=== PATIENT | male | born 1990 | race Caucasian/White ===

== ENCOUNTER 2020-02-12 12:36 | Emergency (ER) | payer BC ==
[2020-02-12] MEDS ORDERED: ASPIRIN 81 MG PO STA (12:57)
--- NOTE | 2020-02-12 13:01 | ED ---
General Adult HPI - General Chief complaint: Arrhythmia/Palpitations Stated complaint: Palpitations Time Seen by Provider: 02/12/20 12:50 Source: patient, RN notes reviewed Mode of arrival: wheelchair Limitations: no limitations - History of Present Illness Initial comments: Patient is a pleasant 21-year-old male presenting to emergency department palpi tations. Patient states he feels like his heart is beating hard. Patient states there is some associated indigestion with this. Patient does have history of chronic indigestion however has been worse over the past week. Patient went to go today to donate plasma however was told there was some ir regularity with his heart beat and patient came to the emergency department. No nausea. No diaphoresis. Patient has been fatigued. Patient is currently symptom-free. - Related Data Home Medications Medication Instructions Recorded Confirmed Testosterone Cypionate 110 mg IM MO 02/12/20 02/12/20 [Depo-Testosterone] Previous Rx's Medication Instructions Recorded Omeprazole [PriLOSEC] 20 mg PO AC-BID #60 cap 02/12/20 Allergies Allergy/AdvReac Type Severity Reaction Status Date / Time No Known Allergies Allergy Verified 02/12/20 13:50 Review of Systems ROS Statement: Those systems with pertinent positive or pertinent negative responses have been documented in the HPI. ROS Other: All systems not noted in ROS Statement are negative. Constitutional: Denies: fever Eyes: Denies: eye pain ENT: Denies: ear pain Respiratory: Denies: cough Cardiovascular: Reports: as per HPI, palpitations Endocrine: Reports: fatigue Gastrointestinal: Denies: abdominal pain, nausea, vomiting Genitourinary: Denies: dysuria Musculoskeletal: Denies: back pain Skin: Denies: rash Neurological: Denies: weakness Past Medical History Past Medical History: No Reported History History of Any Multi-Drug Resistant Organisms: None Reported Past Surgical History: No Surgical Hx Reported Past Psychological History: Bipolar Smoking Status: Current every day smoker Past Alcohol Use History: None Reported Past Drug Use History: None Reported General Exam Limitations: no limitations General appearance: alert, in no apparent distress Head exam: Present: normocephalic Eye exam: Present: normal appearance Neck exam: Present: normal inspection Respiratory exam: Present: normal lung sounds bilaterally. Absent: chest wall tenderness Cardiovascular Exam: Present: regular rate, normal rhythm, normal heart sounds Expanded Peripheral pulses: 2+: Radial (R), Radial (L), Posterior Tibialis (R), Posterior Tibialis (L) GI/Abdominal exam: Present: soft. Absent: tenderness Extremities exam: Present: normal inspection. Absent: pedal edema, calf tenderness Neurological exam: Present: alert Psychiatric exam: Present: normal affect, normal mood Skin exam: Present: normal color Course Vital Signs 02/12/20 02/12/20 12:45 13:49 Temperature 97.8 F 97.9 F Pulse Rate 71 60 Respiratory 20 18 Rate Blood Pressure 142/83 117/81 O2 Sat by Pulse 99 100 Oximetry EKG Findings - EKG Comments: EKG Findings:: Sinus bradycardia with sinus arrhythmia, rate 57. ME 142. QRS 92. QT 390. QTC 379. Normal axis. Normal QRS. No acute ST change. Medical Decision Making - Medical Decision Making Patient reevaluated and resting comfortably in bed. Patient being symptom-free. Patient updated on results and need for follow-up. - Lab Data Result diagrams: 02/12/20 13:02 02/12/20 13:02 Lab Results 02/12/20 02/12/20 02/12/20 Range/Units 13:02 13:02 13:02 WBC 8.2 (3.8-10.6) k/uL RBC 5.37 (4.30-5.90) m/uL Hgb 15.7 (13.0-17.5) gm/dL Hct 46.3 (39.0-53.0) % MCV 86.3 (80.0-100.0) fL MCH 29.3 (25.0-35.0) pg MCHC 33.9 (31.0-37.0) g/dL RDW 12.9 (11.5-15.5) % Plt Count 188 (150-450) k/uL Neutrophils % 63 % Lymphocytes % 27 % Monocytes % 5 % Eosinophils % 3 % Basophils % 1 % Neutrophils # 5.2 (1.3-7.7) k/uL Lymphocytes # 2.2 (1.0-4.8) k/uL Monocytes # 0.4 (0-1.0) k/uL Eosinophils # 0.2 (0-0.7) k/uL Basophils # 0.0 (0-0.2) k/uL PT 9.5 (9.0-12.0) sec INR 0.9 (<1.2) APTT 25.2 (22.0-30.0) sec D-Dimer <0.17 (<0.60) mg/L FEU Sodium 136 L (137-145) mmol/L Potassium 4.2 (3.5-5.1) mmol/L Chloride 105 (98-107) mmol/L Carbon Dioxide 24 (22-30) mmol/L Anion Gap 7 mmol/L BUN 12 (9-20) mg/dL Creatinine 0.73 (0.66-1.25) mg/dL Est GFR (CKD-EPI)AfAm >90 (>60 ml/min/1.73 sqM) Est GFR (CKD-EPI)NonAf >90 (>60 ml/min/1.73 sqM) Glucose 100 H (74-99) mg/dL Calcium 9.5 (8.4-10.2) mg/dL Magnesium 1.9 (1.6-2.3) mg/dL Total Bilirubin 0.8 (0.2-1.3) mg/dL AST 29 (17-59) U/L ALT 44 (4-49) U/L Alkaline Phosphatase 64 (38-126) U/L Troponin I (0.000-0.034) ng/mL Total Protein 7.1 (6.3-8.2) g/dL Albumin 4.6 (3.5-5.0) g/dL TSH 3.720 (0.465-4.680) mIU/L Free T4 1.00 (0.78-2.19) ng/dL Free T3 pg/mL 4.1 (2.8-5.3) pg/ml Urine Color Urine Appearance (Clear) Urine pH (5.0-8.0) Ur Specific [place] (1.001-1.035) Urine Protein (Negative) Urine Glucose (UA) (Negative) Urine Ketones (Negative) Urine Blood (Negative) Urine Nitrite (Negative) Urine Bilirubin (Negative) Urine Urobilinogen (<2.0) mg/dL Ur Leukocyte Esterase (Negative) Urine RBC (0-5) /hpf Urine WBC (0-5) /hpf Ur Squamous Epith Cells (0-4) /hpf Urine Mucus (None) /hpf Urine Opiates Screen (NotDetected) Ur Oxycodone Screen (NotDetected) Urine Methadone Screen (NotDetected) Ur Propoxyphene Screen (NotDetected) Ur Barbiturates Screen (NotDetected) U Tricyclic Antidepress (NotDetected) Ur Phencyclidine Scrn (NotDetected) Ur Amphetamines Screen (NotDetected) U Methamphetamines Scrn (NotDetected) U Benzodiazepines Scrn (NotDetected) Urine Cocaine Screen (NotDetected) U Marijuana (THC) Screen (NotDetected) 02/12/20 02/12/20 Range/Units 13:02 13:02 WBC (3.8-10.6) k/uL RBC (4.30-5.90) m/uL Hgb (13.0-17.5) gm/dL Hct (39.0-53.0) % MCV (80.0-100.0) fL MCH (25.0-35.0) pg MCHC (31.0-37.0) g/dL RDW (11.5-15.5) % Plt Count (150-450) k/uL Neutrophils % % Lymphocytes % % Monocytes % % Eosinophils % % Basophils % % Neutrophils # (1.3-7.7) k/uL Lymphocytes # (1.0-4.8) k/uL Monocytes # (0-1.0) k/uL Eosinophils # (0-0.7) k/uL Basophils # (0-0.2) k/uL PT (9.0-12.0) sec INR (<1.2) APTT (22.0-30.0) sec D-Dimer (<0.60) mg/L FEU Sodium (137-145) mmol/L Potassium (3.5-5.1) mmol/L Chloride (98-107) mmol/L Carbon Dioxide (22-30) mmol/L Anion Gap mmol/L BUN (9-20) mg/dL Creatinine (0.66-1.25) mg/dL Est GFR (CKD-EPI)AfAm (>60 ml/min/1.73 sqM) Est GFR (CKD-EPI)NonAf (>60 ml/min/1.73 sqM) Glucose (74-99) mg/dL Calcium (8.4-10.2) mg/dL Magnesium (1.6-2.3) mg/dL Total Bilirubin (0.2-1.3) mg/dL AST (17-59) U/L ALT (4-49) U/L Alkaline Phosphatase (38-126) U/L Troponin I <0.012 (0.000-0.034) ng/mL Total Protein (6.3-8.2) g/dL Albumin (3.5-5.0) g/dL TSH (0.465-4.680) mIU/L Free T4 (0.78-2.19) ng/dL Free T3 pg/mL (2.8-5.3) pg/ml Urine Color Light Yellow Urine Appearance Clear (Clear) Urine pH 7.5 (5.0-8.0) Ur Specific [place] 1.011 (1.001-1.035) Urine Protein Negative (Negative) Urine Glucose (UA) Negative (Negative) Urine Ketones Negative (Negative) Urine Blood Negative (Negative) Urine Nitrite Negative (Negative) Urine Bilirubin Negative (Negative) Urine Urobilinogen <2.0 (<2.0) mg/dL Ur Leukocyte Esterase Large H (Negative) Urine RBC 2 (0-5) /hpf Urine WBC 15 H (0-5) /hpf Ur Squamous Epith Cells <1 (0-4) /hpf Urine Mucus Rare H (None) /hpf Urine Opiates Screen Not Detected (NotDetected) Ur Oxycodone Screen Not Detected (NotDetected) Urine Methadone Screen Not Detected (NotDetected) Ur Propoxyphene Screen Not Detected (NotDetected) Ur Barbiturates Screen Not Detected (NotDetected) U Tricyclic Antidepress Not Detected (NotDetected) Ur Phencyclidine Scrn Not Detected (NotDetected) Ur Amphetamines Screen Not Detected (NotDetected) U Methamphetamines Scrn Not Detected (NotDetected) U Benzodiazepines Scrn Not Detected (NotDetected) Urine Cocaine Screen Not Detected (NotDetected) U Marijuana (THC) Screen Detected H (NotDetected) - Radiology Data Radiology results: image reviewed (Chest x-ray shows no acute process) Disposition Clinical Impression: Palpitations Disposition: HOME SELF-CARE Condition: Stable Instructions (If sedation given, give patient instructions): Heart Palpitations (ED), Gastroesophageal Reflux Disease (ED) Additional Instructions: Please follow-up with primary care physician in the next couple days for recheck. Consider Holter monitor. Also consider HIDA scan or EGD. Return for chest pain, irregular heartbeat racing heartbeat, worsening or change in symptoms or other concerns. Restrictions sent to [facility] on Prescriptions: Omeprazole [PriLOSEC] 20 mg PO AC-BID #60 cap Is patient prescribed a controlled substance at d/c from ED?: No Referrals: Héctor Mar III, MD [STAFF PHYSICIAN] - 1-2 days Time of Disposition: 14:07
[2020-02-12 13:09] LABS: Basophils % (A) 1 %; Eosinophils # (A) 0.2 k/uL (0-0.7); Eosinophils % (A) 3 %; HCT 46.3 % (39.0-53.0); HGB 15.7 gm/dL (13.0-17.5); Lymphocytes # (A) 2.2 k/uL (1.0-4.8); Lymphocytes % (A) 27 %; MCH 29.3 pg (25.0-35.0); MCHC 33.9 g/dL (31.0-37.0); MCV 86.3 fL (80.0-100.0); Mean Platelet Volume 8.5; Monocytes # (A) 0.4 k/uL (0-1.0); Monocytes % (A) 5 %; Neutrophils # (A) 5.2 k/uL (1.3-7.7); Neutrophils % (A) 63 %; Platelet Count 188 k/uL (150-450); RBC 5.37 m/uL (4.30-5.90); RDW 12.9 % (11.5-15.5); WBC 8.2 k/uL (3.8-10.6)
[2020-02-12 13:19] LABS: ALT 44 U/L (4-49); AST 29 U/L (17-59); African American GFR (CKD) >90 (>60 ml/min/1.73 sqM); Albumin 4.6 g/dL (3.5-5.0); Alkaline Phosphatase 64 U/L (38-126); Anion Gap 7 mmol/L; Blood Urea Nitrogen 12 mg/dL (9-20); Calcium 9.5 mg/dL (8.4-10.2); Carbon Dioxide 24 mmol/L (22-30); Chloride 105 mmol/L (98-107); Glucose 100 mg/dL (74-99); Magnesium 1.9 mg/dL (1.6-2.3); Non-African American GFR(CKD) >90 (>60 ml/min/1.73 sqM); Potassium 4.2 mmol/L (3.5-5.1); Sodium 136 mmol/L (137-145); Total Bilirubin 0.8 mg/dL (0.2-1.3); Total Protein 7.1 g/dL (6.3-8.2)
[2020-02-12 13:21] LABS: Appearance,Urine Clear (Clear); Bilirubin,Urine Negative (Negative); Blood,Urine Negative (Negative); Color,Urine Light Yellow; Glucose,Urine (UA) Negative (Negative); Ketones,Urine Negative (Negative); Leukocyte Esterase,Urine Large (Negative); Mucus,Urine Rare /hpf; Nitrite,Urine Negative (Negative); PH, Urine 7.5 (5.0-8.0); Protein,Urine Negative (Negative); RBC,Urine 2 /hpf (0-5); Specific Gravity,Urine 1.011 (1.001-1.035); Squamous Epithelial Cell,Urine <1 /hpf (0-4); Urobilinogen,Urine <2.0 mg/dL (<2.0); WBC,Urine 15 /hpf (0-5)
[2020-02-12 13:23] LABS: D-Dimer <0.17 mg/L FEU (<0.60); INR 0.9 (<1.2); Partial Thromboplastin Time 25.2 sec (22.0-30.0); Prothrombin Time 9.5 sec (9.0-12.0)
[2020-02-12 13:29] LABS: Amphetamine Screen,Urine Not Detected (NotDetected); Barbiturate Screen,Urine Not Detected (NotDetected); Benzodiazepines Screen,Urine Not Detected (NotDetected); Cocaine Screen,Urine Not Detected (NotDetected); Methadone Screen, Urine Not Detected (NotDetected); Opiate Screen,Urine Not Detected (NotDetected); Oxycodone Screen, Urine Not Detected (NotDetected); Phencyclidine Screen,Urine Not Detected (NotDetected); Tricyclic Antidepressant,Urine Not Detected (NotDetected); Urn Cannabinoid Scrn Detected (NotDetected)
--- NOTE | 2020-02-12 13:36 | XR ---
EXAMINATION TYPE: XR chest 2V DATE OF EXAM: 02/12/2020 COMPARISON: NONE HISTORY: Chest tightness and dysrhythmia. TECHNIQUE: Frontal and lateral views of the chest are obtained. FINDINGS: There is no focal air space opacity, pleural effusion, or pneumothorax seen. The cardiac silhouette size is within normal limits. The osseous structures are intact. IMPRESSION: No acute cardiopulmonary process.
[2020-02-12 13:50] VITALS: BP 117/81; PULSE 60; RESP 18; TEMP 97.9
== END 2020-02-12 14:25 | disposition home or self-care (01) ==
LOC: EC 12:36
DX: R00.2 Palpitations (principal); F17.200 Nicotine dependence, unspecified, uncomplicated; Z79.890 Hormone replacement therapy
CPT/HCPCS: 36415; 71046; 80053; 80306; 81001; 83735; 84439; 84443; 84481; 84484; 85025; 85379; 85610; 85730; 87086; 93005; 99285

== ENCOUNTER 2021-05-16 21:51 | Emergency (ER) | payer BC, OTHER ==
[2021-05-16 21:57] VITALS: RESP 18
[2021-05-16] MEDS ORDERED: AMOXICILLIN 500 MG CAP PO STA (22:18)
--- NOTE | 2021-05-16 22:24 | ED ---
General Adult HPI - General Chief complaint: ENT Stated complaint: Sore Throat Time Seen by Provider: 05/16/21 22:04 Source: patient, RN notes reviewed Mode of arrival: ambulatory Limitations: no limitations - History of Present Illness Initial comments: 30-year-old male presents to the emergency room for a chief complaint of sore throat. Patient has had a sore throat for about 5 days now. Patient states he was diagnosed with COVID-19 on the and symptoms had resolved however his throat started hurting on the . He was seen at another emergency room and had a negative strep test. States since then the symptoms have worsened and he saw white spots in the back of his throat. Patient states he feels he needs a medication to treat this.Patient has no other complaints at this time including shortness of breath, chest pain, abdominal pain, nausea or vomiting, headache, or visual changes. - Related Data Home Medications Medication Instructions Recorded Confirmed Testosterone Cypionate 110 mg IM MO 02/12/20 02/12/20 [Depo-Testosterone] Previous Rx's Medication Instructions Recorded Omeprazole [PriLOSEC] 20 mg PO AC-BID #60 cap 02/12/20 Amoxicillin 500 mg PO Q12HR #14 cap 05/16/21 Allergies Allergy/AdvReac Type Severity Reaction Status Date / Time No Known Allergies Allergy Verified 05/16/21 21:56 Review of Systems ROS Statement: Those systems with pertinent positive or pertinent negative responses have been documented in the HPI. ROS Other: All systems not noted in ROS Statement are negative. Past Medical History Past Medical History: No Reported History History of Any Multi-Drug Resistant Organisms: None Reported Past Surgical History: No Surgical Hx Reported Past Psychological History: Bipolar Smoking Status: Current every day smoker Past Alcohol Use History: None Reported Past Drug Use History: None Reported General Exam Limitations: no limitations General appearance: alert, in no apparent distress Head exam: Present: atraumatic Eye exam: Present: normal appearance, PERRL, EOMI. Absent: scleral icterus, conjunctival injection ENT exam: Present: normal exam, mucous membranes moist. Absent: normal oropharynx (Uvula midline, no tonsillar exudate bilaterally. Oropharynx is erythematous however.) Neck exam: Present: normal inspection, full ROM. Absent: tenderness Respiratory exam: Present: normal lung sounds bilaterally. Absent: respiratory distress, wheezes Cardiovascular Exam: Present: regular rate, normal rhythm, normal heart sounds GI/Abdominal exam: Present: soft, normal bowel sounds. Absent: distended, tenderness Course Vital Signs 05/16/21 21:54 Temperature 98.8 F Pulse Rate 89 Respiratory 18 Rate Blood Pressure 139/91 O2 Sat by Pulse 99 Oximetry Medical Decision Making - Medical Decision Making Vitals are stable. Patient is well appearing. Oropharynx appears erythematous however no tonsillar exudates. Uvula midline. No evidence for peritonsillar abscess. Given patient has had a sore throat for about 6 days now and symptoms are worsening we will treat with an antibiotic. He will return for any worsening symptoms. Disposition Clinical Impression: Pharyngitis Disposition: HOME SELF-CARE Condition: Good Instructions (If sedation given, give patient instructions): Pharyngitis (ED) Additional Instructions: Please take medications as directed. Follow-up with your doctor. Return to the emergency room for any worsening symptoms. Prescriptions: Amoxicillin 500 mg PO Q12HR #14 cap Is patient prescribed a controlled substance at d/c from ED?: No Referrals: Nancy Doshi MD [REFERRING] - 1-2 days Time of Disposition: 22:21
[2021-05-16 22:53] VITALS: BP 131/88; PULSE 87; TEMP 98.7
== END 2021-05-16 22:50 | disposition home or self-care (01) ==
LOC: EC 21:51
DX: J02.9 Acute pharyngitis, unspecified (principal); F31.9 Bipolar disorder, unspecified; F17.200 Nicotine dependence, unspecified, uncomplicated
CPT/HCPCS: 99282

== ENCOUNTER → 2022-09-17 | Outpatient (CLI) | payer OTHER ==
[2022-09-17 14:26] LABS: HCT 46.1 % (39.6-50.0); HGB 15.2 g/dL (13.0-17.0); MCH 28.8 pg (27.0-32.0); MCV 87.3 fL (80.0-97.0); NRBC Per 100 WBC 0 /100 WBCS (0.0-0.0); Platelet Count 229 X 10*3/uL (140-440); RBC 5.28 X 10*6/uL (4.40-5.60); RDW 12.9 % (11.5-14.5); WBC 6.64 X 10*3/uL (4.50-10.00)
[2022-09-17 15:55] LABS: African American GFR (CKD) 132.7 (60.0-200.0); Albumin 4.3 g/dL (3.8-4.9); Albumin/Globulin Ratio 1.88 (1.60-3.17); BUN/Creat Ratio 8.68 Ratio (12.00-20.00); Blood Urea Nitrogen 7.8 mg/dL (9.0-27.0); Calcium 9.3 mg/dL (8.7-10.3); Carbon Dioxide 27.6 mmol/L (20.0-27.5); Estradiol 27.4 pg/mL; Globulin 2.3 g/dL (1.6-3.3); Non-African American GFR(CKD) 114.5 (60.0-200.0); Potassium 3.9 mmol/L (3.5-5.5); Total Bilirubin 0.6 mg/dL (0.30-1.20); Total Protein 6.6 g/dL (6.2-8.2)
== END | disposition home or self-care (01) ==
LOC: LABWHC1 10:42
PROVIDERS: ATTEND Obstetrics & Gynecology
DX: F64.0 Transsexualism (principal)
CPT/HCPCS: 36415; 80053; 82670; 85027

== ENCOUNTER → 2022-10-21 | Outpatient (CLI) | payer OTHER | END | disposition home or self-care (01) | LOC: LABWHC1 12:28 | PROVIDERS: ATTEND Obstetrics & Gynecology | DX: F64.0 Transsexualism (principal) | CPT/HCPCS: 36415 ==

== ENCOUNTER 2022-12-01 06:06 | Day surgery (SDC) | payer OTHER ==
[~2022-12-01 06:06] MED LIST: ACETAMINOPHEN TAB 500 MG TAB PO PRN; DEXAMETHASONE SOD PHOSPHATE 4 MG/ML 1 ML VIAL IV ONE; HEPARIN SODIUM,PORCINE/PF 5,000 UNIT/0.5 ML SYRINGE SQ PRN; HYDROmorphone 0.5 MG/0.5 ML SYRINGE IVP PRN; LACTATED RINGERS 1,000 ML IV SCH; ONDANSETRON 4 MG/2 ML VIAL IVP ONE
[2022-12-01] MEDS ORDERED: ROCURONIUM 10 MG/ML (5 ML VIAL) IV ONE (07:25)
[2022-12-01] MEDS ORDERED: MIDAZOLAM 2 MG/2 ML VIAL ONE (07:25)
[2022-12-01] MEDS ORDERED: GLYCOPYRROLATE 0.2 MG/ML 2 ML VIAL ONE (07:25)
[2022-12-01] MEDS ORDERED: KETOROLAC 15 MG/ML 1 ML VIAL ONE (07:25)
[2022-12-01] MEDS ORDERED: LIDOCAINE 2% INJ 20 MG/ML (2 ML VIAL) ONE (07:25)
[2022-12-01] MEDS ORDERED: SUCCINYLCHOLINE CHLORIDE 200 MG/10 ML VIAL IV ONE (07:25)
[2022-12-01] MEDS ORDERED: fentaNYL (PF) 50 MCG/ML 2 ML AMP ONE (07:25)
[2022-12-01] MEDS ORDERED: NEOSTIGMINE 1 MG/ML 10 ML VIAL ONE (07:25)
[2022-12-01] MEDS ORDERED: LIDOCAINE 4% LTA KIT (4 ML) TOPICAL ONE (07:25)
[2022-12-01] MEDS ORDERED: PROPOFOL 10 MG/ML 20 ML VIAL IV ONE (07:25)
--- NOTE | 2022-12-01 07:26 | P.GSHP ---
History of Present Illness H&P Date: 12/01/22 Chief Complaint: Chronic cholecystitis 32-year-old male here today for elective cholecystectomy. Patient with intermittent nausea, right upper quadrant pain with history of gallstones and contracted gallbladder on ultrasound. Symptoms have persisted since he was last seen in the office in September. Past Medical History Past Medical History: No Reported History Additional Past Medical History / Comment(s): gallstones,transgender- transitioning History of Any Multi-Drug Resistant Organisms: None Reported Past Surgical History: No Surgical Hx Reported Past Anesthesia/Blood Transfusion Reactions: No Reported Reaction Additional Past Anesthesia/Blood Transfusion Reaction / Comment(s): no hx of general anesthesia or blood transfusion Smoking Status: Former smoker - Past Family History Mother Family Medical History: No Reported History Medications and Allergies Home Medications Medication Instructions Recorded Confirmed Type Testosterone Cypionate 110 mg IM MO 02/12/20 12/01/22 History [Depo-Testosterone] Allergies Allergy/AdvReac Type Severity Reaction Status Date / Time No Known Allergies Allergy Verified 12/01/22 06:56 Surgical - Exam Vital Signs Temp Pulse Resp BP Pulse Ox 97.5 F L 57 L 15 141/76 97 12/01/22 07:06 12/01/22 07:06 12/01/22 07:06 12/01/22 07:06 12/01/22 07:06 Physical exam: General: Well-developed, well-nourished HEENT: Normocephalic, sclerae nonicteric Abdomen: Nontender, nondistended Extremities: No edema Neuro: Alert and oriented Assessment and Plan (1) Chronic cholecystitis Narrative/Plan: Will proceed with laparoscopic, possible open cholecystectomy at this time. Risks of bleeding, infection, bile leak, bile duct injury, retained common bile duct stone, trocar injury, conversion to an open procedure, hernia, anesthesia related complications were reviewed. The patient understands and wishes to proceed. Current Visit: Yes Status: Acute Code(s): K81.1 - CHRONIC CHOLECYSTITIS S NOMED Code(s): 25051396
[2022-12-01] MEDS ORDERED: BUPIVACAINE (PF) 0.25% 30 ML VIAL SQ ONE ×2 (08:02→08:16)
[2022-12-01] MEDS ORDERED: droPERidol 5 MG/2 ML VIAL IVP ONE (08:35)
[2022-12-01 08:48] VITALS: TEMP 97.4
[2022-12-01] MEDS ORDERED: GLYCOPYRROLATE 0.2 MG/ML 2 ML VIAL IVP ONE (08:57)
[2022-12-01 09:04] VITALS: RESP 16
--- NOTE | 2022-12-01 10:21 | P.OP ---
Date of Procedure: 12/01/22 Procedure(s) Performed: PREOPERATIVE DIAGNOSIS: Chronic cholecystitis POSTOPERATIVE DIAGNOSIS: Same PROCEDURE: Laparoscopic cholecystectomy SURGEON: Pat EBL: Minimal see anesthesia record ANESTHESIA: Gen. COMPLICATIONS: None OPERATIVE PROCEDURE: The patient was brought and placed on the operating room table in the supine position. The patient was placed under general anesthesia at that time. The abdomen was prepped and draped in the usual sterile fashion. A small vertical infraumbilical incision was made. The fascia was grasped with the Baldo forceps. The fascia was retracted anteriorly. The Veress needle was advanced into the peritoneal cavity. The saline drop test was normal. Insufflation took place up to 15 mmHg. A 5 mm optical trocar was advanced and the peritoneal cavity. 2 additional 5 mm trochars were placed in the right upper quadrant under direct visualization. A 12 mm trocar was advanced into the epigastric incision site. The gallbladder was retracted superiorly and laterally. The peritoneum overlying the infundibulum was bluntly dissected. The patient's cystic duct was visualized. The junction between the cystic duct common and hepatic duct was identified. The critical view of safety was achieved after blunt dissection. The cystic duct was then divided after placement of 3 12 mm clips on the patient's side and one on the specimen side. The cystic artery was identified and clipped as well. A small vessel was seen along the gallbladder fossa and clipped as well. The gallbladder was then removed from the liver bed using electrocautery. The gallbladder was then removed from the epigastric trocar site with an Endo Catch bag. The gallbladder fossa was irrigated with saline. There was no evidence of any bleeding or biliary drainage seen. The fascia at the 12 millimeter site was closed using a Pj-Brandi 0 Vicryl stitch. The trochars were then removed. The skin at all 4 sites was closed using a 4-0 Monocryl stitch. Skin glue was utilized on the incision sites. At the end of this procedure the sponge and needle counts were correct. DISPOSITION: Stable to the recovery room
[2022-12-01] MEDS ORDERED: LACTATED RINGERS 1,000 ML IV ONE (10:40)
[2022-12-01 11:03] VITALS: BP 123/75; PULSE 57
[2022-12-01] MEDS ORDERED: ACETAMINOPHEN TAB 325 MG TAB PO SCH (12:00)
[2022-12-01] MEDS ORDERED: IBUPROFEN 600 MG TAB PO SCH (13:30)
== END 2022-12-01 11:11 | disposition home or self-care (01) ==
LOC: OR 06:06
PROVIDERS: ATTEND Surgery
DX: K80.10 Calculus of gallbladder with chronic cholecystitis without obstruction (principal); F12.90 Cannabis use, unspecified, uncomplicated; Z87.891 Personal history of nicotine dependence; Z87.19 Personal history of other diseases of the digestive system; Z79.890 Hormone replacement therapy
CPT/HCPCS: 47562; 81025; J2250; J0330; J1100; J2710; J0690; J2405; J3010; J1885; J2704; J1790; J1644; J2001; 88304

== ENCOUNTER 2024-03-18 23:26 | Emergency (ER) | payer BC, OTHER ==
--- NOTE | 2024-03-19 00:52 | ED ---
General Adult HPI - General Chief complaint: Fever Stated complaint: Fever Time Seen by Provider: 03/18/24 23:39 Source: patient, RN notes reviewed Mode of arrival: ambulatory Limitations: no limitations - History of Present Illness Initial comments: This is a 33-year-old male with no significant past medical history presents emergency department chief complaint of sore throat and fevers over the past few days. Patient originally thought that this was a upper respiratory infection however was concerned that his fever was not resolving with Tylenol Motrin at home. He endorses mild cough as well. Denies nausea, vomiting, abdominal pain. No other acute complaints at this time. - Related Data Home Medications Medication Instructions Recorded Confirmed Testosterone Cypionate 110 mg IM MO 02/12/20 12/01/22 [Depo-Testosterone] Previous Rx's Medication Instructions Recorded oxyCODONE HCL [OxyIR] 5 mg PO Q6H PRN 3 Days #6 tab 12/01/22 Amoxic-Pot Clav 875-125Mg 1 tab PO BID 5 Days #10 tab 12/04/22 [Augmentin 875-125] Amoxicillin 875 mg PO Q12HR #20 tablet 03/19/24 Allergies Allergy/AdvReac Type Severity Reaction Status Date / Time ketorolac [From Toradol] Allergy Rash/Hives Verified 03/18/24 23:42 Review of Systems ROS Statement: Those systems with pertinent positive or pertinent negative responses have been documented in the HPI. ROS Other: All systems not noted in ROS Statement are negative. Past Medical History Past Medical History: No Reported History Additional Past Medical History / Comment(s): gallstones,transgender- transitioning History of Any Multi-Drug Resistant Organisms: None Reported Past Surgical History: No Surgical Hx Reported Past Anesthesia/Blood Transfusion Reactions: No Reported Reaction Additional Past Anesthesia/Blood Transfusion Reaction / Comment(s): no hx of general anesthesia or blood transfusion Past Psychological History: Bipolar Smoking Status: Former smoker Past Alcohol Use History: None Reported Past Drug Use History: None Reported - Past Family History Mother Family Medical History: No Reported History General Exam Limitations: no limitations General appearance: alert, in no apparent distress Head exam: Present: atraumatic, normocephalic, normal inspection ENT exam: Present: normal exam, mucous membranes moist, other (Tonsillomegaly with tonsillar exudates and erythema) Neck exam: Present: normal inspection, lymphadenopathy. Absent: tenderness Respiratory exam: Present: normal lung sounds bilaterally. Absent: respiratory distress, wheezes, rales, rhonchi, stridor Cardiovascular Exam: Present: regular rate, normal rhythm, normal heart sounds. Absent: systolic murmur, diastolic murmur, rubs, gallop, clicks GI/Abdominal exam: Present: soft, normal bowel sounds. Absent: distended, tenderness, guarding, rebound, rigid Extremities exam: Present: normal inspection, full ROM, normal capillary refill. Absent: tenderness, pedal edema, joint swelling, calf tenderness Skin exam: Present: warm, dry, intact, normal color. Absent: rash Course Vital Signs 03/18/24 03/19/24 23:38 01:26 Temperature 103 F H 101.6 F H Pulse Rate 101 H 99 Respiratory 20 16 Rate Blood Pressure 129/82 126/74 O2 Sat by Pulse 98 99 Oximetry Medical Decision Making - Medical Decision Making Was pt. sent in by a medical professional or institution (, PA, ROCKET SCIENTIST, urgent care, hospital, or senior living...) When possible be specific @ -No Did you speak to anyone other than the patient for history (EMS, parent, family, police, friend...)? What history was obtained from this source @ -No Did you review nursing and triage notes (agree or disagree)? Why? @ -I reviewed and agree with nursing and triage notes Were old charts reviewed (outside hosp., previous admission, EMS record, old EKG, old radiological studies, urgent care reports/EKG's, senior living records)? Report findings @ -No old charts were reviewed Differential Diagnosis (chest pain, altered mental status, abdominal pain women, abdominal pain men, vaginal bleeding, weakness, fever, dyspnea, syncope, headache, dizziness, GI bleed, back pain, seizure, CVA, palpatations, mental health, musculoskeletal)? @ -COVID 19, RSV, influenza, pneumonia, acute bronchitis, URI, this list is not all inclusive EKG interpreted by me (3pts min.). @ -None X-rays interpreted by me (1pt min.). @ -Chest x-ray no acute cardiopulmonary process or disease noted CT interpreted by me (1pt min.). @ -None done U/S interpreted by me (1pt. min.). @ -None done What testing was considered but not performed or refused? (CT, X-rays, U/S, labs)? Why? @ -None What meds were considered but not given or refused? Why? @ -None Did you discuss the management of the patient with other professionals (professionals i.e. , PA, ROCKET SCIENTIST, lab, RT, psych nurse, director social welfare, petroleum analyst, teacher, hazard mitigation officer, case management coordinator)? Give summary @ -No Was smoking cessation discussed for >3mins.? @ -No Was critical care preformed (if so, how long)? @ -No Were there social determinants of health that impacted care today? How? (Homelessness, low income, unemployed, alcoholism, drug addiction, transportation, low edu. Level, literacy, decrease access to med. care, residential, rehab)? @ -No Was there de-escalation of care discussed even if they declined (Discuss DNR or withdrawal of care, Hospice)? DNR status @ -No What co-morbidities impacted this encounter? (DM, HTN, Smoking, COPD, CAD, Cancer, CVA, ARF, Chemo, Hep., AIDS, mental health diagnosis, sleep apnea, morbid obesity)? @ -None Was patient admitted / discharged? Hospital course, mention meds given and route, prescriptions, significant lab abnormalities, going to OR and other pertinent info. @ -Discharge. 33-year-old male with upper respiratory infection symptoms and sore throat. On arrival patient is noted to be tachycardic and febrile with vitals of 103 and heart rate of 101. Patient is provided with 800 mg tablet of ibuprofen pending laboratory results and chest x-ray. Patient is positive for strep throat, chest x-ray negative for acute cardiopulmonary process. Patient is provided with initial dose of amoxicillin in the emergency department and will be sent for a prescription for the pharmacy. Recommend that he increase oral hydration and continue to use Tylenol and Motrin at home for symptomatic and fever relief. All questions answered at bedside and strict return parameters sunni with the patient he is verbalized understanding. Discussed with Dr. Zimmerman Undiagnosed new problem with uncertain prognosis? @ -No Drug Therapy requiring intensive monitoring for toxicity (Heparin, Nitro, Insulin, Cardizem)? @ -No Were any procedures done? @ -No Diagnosis/symptom? @ -Fever, strep pharyngitis Acute, or Chronic, or Acute on Chronic? @ -Acute Uncomplicated (without systemic symptoms) or Complicated (systemic symptoms)? @ -uncomplicated Side effects of treatment? @ -No Exacerbation, Progression, or Severe Exacerbation? @ -No Poses a threat to life or bodily function? How? (Chest pain, [place], [place], pneumonia, PE, COPD, DKA, ARF, appy, cholecystitis, CVA, Diverticulitis, Homicidal, Suicidal, threat to staff... and all critical care pts) @ -No - Lab Data Lab Results 03/18/24 03/18/24 Range/Units 23:45 23:45 Influenza Type A (PCR) Not Detected (Not Detectd) Influenza Type B (PCR) Not Detected (Not Detectd) RSV (PCR) Not Detected (Not Detectd) SARS-CoV-2 (PCR) Not Detected (Not Detectd) Group A Strep (PCR) DETECTED A (Not Detectd) Disposition Clinical Impression: Strep pharyngitis, Fever Disposition: HOME SELF-CARE Condition: Good Instructions (If sedation given, give patient instructions): Strep Throat (DC), Fever in Adults (ED) Additional Instructions: Return to the emergency department for any new or worsening symptoms. Complete full course of antibiotics as prescribed. Recommend they continue Tylenol Motrin at home for symptomatic and fever relief. Follow-up with a your toothbrush and increase hydration. Follow-up with your primary care provider within 1 week for further evaluation. Prescriptions: Amoxicillin 875 mg PO Q12HR #20 tablet Is patient prescribed a controlled substance at d/c from ED?: No Referrals: None,Stated [Primary Care Provider] - 1-2 days Time of Disposition: 01:08
--- NOTE | 2024-03-19 01:05 | XR ---
EXAM: XR Chest, 2 Views CLINICAL HISTORY: ITS.REASON XR Reason: fever/cough TECHNIQUE: Frontal and lateral views of the chest. COMPARISON: 02/12/2020. FINDINGS: Lungs: Unremarkable. No consolidative changes. Pleural space: Unremarkable. No pneumothorax. No pleural effusions. Heart: Heart is normal in size. No cardiomegaly. Mediastinum: Unremarkable. Normal mediastinal contour. Bones/joints: Unremarkable. No acute fracture. Normal alignment of the thoracic spine. IMPRESSION: No active disease, unchanged.
[2024-03-19] MEDS: IBUPROFEN 800 MG TAB PO STA (01:16)
[2024-03-19] MEDS: AMOXICILLIN 875 MG TAB PO ONE (01:23)
[2024-03-19 01:27] VITALS: BP 126/74; PULSE 99; RESP 16; TEMP 101.6
== END 2024-03-19 01:27 | disposition home or self-care (01) ==
LOC: EC 23:26
CPT/HCPCS: 71046; 87636; 87651; 99283

== ENCOUNTER 2024-03-20 14:28 | Emergency (ER) | payer BC ==
[2024-03-20] MEDS: ACETAMINOPHEN TAB 500 MG TAB PO STA (16:08)
--- NOTE | 2024-03-20 16:08 | ED ---
Skin/Abscess/FB HPI - General Chief complaint: Skin/Abscess/Foreign Body Stated complaint: Recheck-Rash Time Seen by Provider: 03/20/24 15:46 Source: patient Mode of arrival: ambulatory Limitations: no limitations - History of Present Illness Initial comments: 33-year-old male presenting with chief complaint of rash. Patient was seen here on Thursday and diagnosed with strep throat, started on amoxicillin. Has been taking medication as prescribed and reports that he does not feel much better. He states he still having fevers and now is breaking out in a rash on his face and back. He admits to muscle aches and fatigue. He also admits to multiple canker sores in the mouth and general discomfort that is making it difficult to eat. Admits to some left upper quadrant pain. No chest pain or difficulty breathing. No nausea vomiting or diarrhea. - Related Data Home Medications Medication Instructions Recorded Confirmed Testosterone Cypionate 110 mg IM MO 02/12/20 12/01/22 [Depo-Testosterone] Previous Rx's Medication Instructions Recorded oxyCODONE HCL [OxyIR] 5 mg PO Q6H PRN 3 Days #6 tab 12/01/22 Amoxic-Pot Clav 875-125Mg 1 tab PO BID 5 Days #10 tab 12/04/22 [Augmentin 875-125] Amoxicillin 875 mg PO Q12HR #20 tablet 03/19/24 Allergies Allergy/AdvReac Type Severity Reaction Status Date / Time ketorolac [From Toradol] Allergy Rash/Hives Verified 03/20/24 14:32 Review of Systems ROS Statement: Those systems with pertinent positive or pertinent negative responses have been documented in the HPI. ROS Other: All systems not noted in ROS Statement are negative. Past Medical History Past Medical History: No Reported History Additional Past Medical History / Comment(s): gallstones,transgender- transitioning History of Any Multi-Drug Resistant Organisms: None Reported Past Surgical History: No Surgical Hx Reported Past Anesthesia/Blood Transfusion Reactions: No Reported Reaction Additional Past Anesthesia/Blood Transfusion Reaction / Comment(s): no hx of general anesthesia or blood transfusion Past Psychological History: Bipolar Smoking Status: Former smoker Past Alcohol Use History: None Reported Past Drug Use History: None Reported - Past Family History Mother Family Medical History: No Reported History General Exam Limitations: no limitations General appearance: alert, in no apparent distress Head exam: Present: atraumatic, normocephalic, normal inspection Eye exam: Present: normal appearance, EOMI Neck exam: Present: normal inspection. Absent: meningismus Respiratory exam: Present: normal lung sounds bilaterally. Absent: respiratory distress, wheezes, rales, rhonchi, stridor Cardiovascular Exam: Present: regular rate, normal rhythm, normal heart sounds. Absent: systolic murmur, diastolic murmur, rubs, gallop, clicks GI/Abdominal exam: Present: soft, tenderness (Left upper quadrant). Absent: distended, guarding, rebound, rigid Neurological exam: Present: alert, oriented X3 Psychiatric exam: Present: normal affect, normal mood Expanded Description of rash: Present: papular (Red papules to the face) Course Vital Signs 03/20/24 03/20/24 03/20/24 14:29 15:50 17:27 Temperature 98.6 F 99.3 F 98.9 F Pulse Rate 85 80 Respiratory 16 18 Rate Blood Pressure 126/88 121/78 O2 Sat by Pulse 99 99 Oximetry Medical Decision Making - Medical Decision Making Was pt. sent in by a medical professional or institution (, PA, VOLUNTEER SERVICES SPECIALIST, urgent care, hospital, or longterm...) When possible be specific @ -No Did you speak to anyone other than the patient for history (EMS, parent, family, police, friend...)? What history was obtained from this source @ -No Did you review nursing and triage notes (agree or disagree)? Why? @ -I reviewed and agree with nursing and triage notes Were old charts reviewed (outside hosp., previous admission, EMS record, old EKG, old radiological studies, urgent care reports/EKG's, longterm records)? Report findings @ -I reviewed the patient's most recent ER visit Differential Diagnosis (chest pain, altered mental status, abdominal pain women, abdominal pain men, vaginal bleeding, weakness, fever, dyspnea, syncope, headache, dizziness, GI bleed, back pain, seizure, CVA, palpatations, mental health, musculoskeletal)? @ -Differential includes group A strep, scarlet fever, mononucleosis, allergic reaction, this is not an all-inclusive list EKG interpreted by me (3pts min.). @ -As above X-rays interpreted by me (1pt min.). @ -None done CT interpreted by me (1pt min.). @ -None done U/S interpreted by me (1pt. min.). @ -None done What testing was considered but not performed or refused? (CT, X-rays, U/S, labs)? Why? @ -None What meds were considered but not given or refused? Why? @ -None Did you discuss the management of the patient with other professionals (professionals i.e. Dr., PA, VOLUNTEER SERVICES SPECIALIST, lab, RT, psych nurse, hospice social worker, sports lawyer, teacher, animal park code enforcement officer, binder caser)? Give summary @ -No Was smoking cessation discussed for >3mins.? @ -No Was critical care preformed (if so, how long)? @ -No Were there social determinants of health that impacted care today? How? (Homelessness, low income, unemployed, alcoholism, drug addiction, transportation, low edu. Level, literacy, decrease access to med. care, long term, re hab)? @ -No Was there de-escalation of care discussed even if they declined (Discuss DNR or withdrawal of care, Hospice)? DNR status @ -No What co-morbidities impacted this encounter? (DM, HTN, Smoking, COPD, CAD, Cancer, CVA, ARF, Chemo, Hep., AIDS, mental health diagnosis, sleep apnea, morbid obesity)? @ -None Was patient admitted / discharged? Hospital course, mention meds given and route, prescriptions, significant lab abnormalities, going to OR and other pertinent info. @ -33-year-old male presenting with chief complaint of rash and fevers. He was diagnosed with strep throat on Thursday and started on amoxicillin. On exam there are erythematous papules seen on the face. He also does have multiple aphthous ulcers to the mouth. Heterophile is negative. Patient likely has a presen tation of scarlet fever. He is encouraged to continue his medication. Educated on today's findings and management plan. Discharged. Follow-up with PCP. Report back to ER with any new or worsening symptoms. Discussed return parameters and answered all questions. Patient conveyed verbal understanding and agreed to the plan. I discussed this case in detail with my attending Dr. Dominguez Undiagnosed new problem with uncertain prognosis? @ -No Drug Therapy requiring intensive monitoring for toxicity (Heparin, Nitro, Insulin, Cardizem)? @ -No Were any procedures done? @ -No Diagnosis/symptom? @ -Scarlet fever Acute, or Chronic, or Acute on Chronic? @ -Acute Uncomplicated (without systemic symptoms) or Complicated (systemic symptoms)? @ -Uncomplicated Side effects of treatment? @ -No Exacerbation, Progression, or Severe Exacerbation? @ -No - Lab Data Lab Results 03/20/24 Range/Units 16:08 Heterophile Antibody Negative (Negative) Disposition Clinical Impression: Scarlet fever Disposition: HOME SELF-CARE Condition: Good Instructions (If sedation given, give patient instructions): Scarlet Fever (ED) Additional Instructions: Follow-up with PCP, suggestion provided. Report back to ER with any new or worsening symptoms. Continue taking your antibiotics as prescribed. Alternate Motrin and Tylenol as needed for fever aches and pains. Is patient prescribed a controlled substance at d/c from ED?: No Referrals: None,Stated [Primary Care Provider] - 1-2 days Ras Mccall MD [STAFF PHYSICIAN] - 1-2 days Dominic Londono MD [STAFF PHYSICIAN] - 1-2 days Time of Disposition: 17:18
[2024-03-20] MEDS: SODIUM CHLORIDE 0.9% 1,000 ML IV ONE (16:11)
[2024-03-20] MEDS: ONDANSETRON 4 MG/2 ML VIAL IVP STA (16:15)
[2024-03-20] MEDS: ONDANSETRON 4 MG ODT STARTER PACK 2 TAB BTL PO STA (17:23)
[2024-03-20 17:29] VITALS: BP 121/78; PULSE 80; RESP 18; TEMP 98.9
== END 2024-03-20 18:56 | disposition home or self-care (01) ==
LOC: EC 14:28
DX: A38.9 Scarlet fever, uncomplicated (principal); Z87.891 Personal history of nicotine dependence; Z88.6 Allergy status to analgesic agent
CPT/HCPCS: 36415; 86308; 99283; 96374; 96361; J2405; S0119

== ENCOUNTER → 2024-04-07 | Outpatient (CLI) | payer BC ==
[2024-04-07 19:18] LABS: HCT 39.7 % (39.6-50.0); HGB 13.4 g/dL (13.0-17.0); Immature Platelet Fraction 18.3 % (1.1-6.1); MCH 29.3 pg (27.0-32.0); MCHC 33.8 g/dL (32.0-37.0); MCV 86.7 FL (80.0-97.0); NRBC Per 100 WBC 0 X 10*3/uL (0.00-0.01); Platelet Count 33 X 10*3/uL (140-440); RBC 4.58 X 10*6/uL (4.40-5.60); RDW 13.2 % (11.5-14.5); WBC 6.79 X 10*3/uL (4.50-10.00)
[2024-04-08 00:08] LABS: BUN/Creat Ratio 7.12 Ratio (12.00-20.00); Blood Urea Nitrogen 5.7 mg/dL (9.0-27.0); Estradiol <20.0 pg/mL; Glucose 98 mg/dL (70-110)
[2024-04-08 00:09] LABS: ALT 60 U/L (10-49); AST 36 U/L (14-35); Albumin/Globulin Ratio 1.54 Ratio (1.60-3.17); Alkaline Phosphatase 145 U/L (41-126); Calcium 8.7 mg/dL (8.7-10.3); Carbon Dioxide 23.8 mmol/L (21.6-31.8); Chloride 103 mmol/L (96-109); Globulin 2.6 g/dL (1.6-3.3); Potassium 3.8 mmol/L (3.5-5.5); Sodium 138 mmol/L (135-145); Total Bilirubin 0.6 mg/dL (0.3-1.2); Total Protein 6.6 g/dL (6.2-8.2)
== END | disposition home or self-care (01) ==
LOC: LABWHC1 13:19
DX: F64.0 Transsexualism (principal)
CPT/HCPCS: 36415; 80053; 82670; 84403; 85027